=== PATIENT | male | born 1940 | race African-American/Black ===

== ENCOUNTER 2020-05-14 09:05 | Emergency (ER) | payer MEDICARE, MEDICAID ==
[~2020-05-14] VITALS: Ht 185.4 cm; Wt 75.0 kg
[~2020-05-14 09:05] MED LIST: ASPI-1497 PO; BACL-141 PO; ESCI10TA PO; SIMV10TA97 PO
[2020-05-14] MEDS ORDERED: ACETAMINOPHEN 500MG TABLET PO ONE (11:00)
[2020-05-14 11:56] VITALS: BP 137/93
== END 2020-05-14 12:40 | disposition home or self-care (01) ==
LOC: ER 10:13
DX: S22.42XA Multiple fractures of ribs, left side, initial encounter for closed fracture (principal); W18.39XA Other fall on same level, initial encounter; Y93.89 Activity, other specified; Y92.89 Other specified places as the place of occurrence of the external cause; Y99.8 Other external cause status; I10 Essential (primary) hypertension; Z86.73 Personal history of transient ischemic attack (TIA), and cerebral infarction without residual deficits; Z79.899 Other long term (current) drug therapy
CPT/HCPCS: 71101; 73030; 93005; 99284

== ENCOUNTER 2021-09-06 02:34 | Inpatient (IN) | payer MEDICARE, MEDICAID ==
[~2021-09-06] VITALS: Ht 177.8 cm; Wt 81.6 kg
[2021-09-06 03:47] LABS: BASOPHILS % 0.6 % (0.0-2.0); EOSINOPHILS % 1.8 % (0.0-5.0); HEMATOCRIT. 39.1 % (42.0-52.0); HEMOGLOBIN. 13.1 g/dL (14.0-18.0); LYMPHOCYTES % 13.2 % (20.0-50.0); MEAN CORPUSCULAR HEMOGLOBIN 31.7 pg (28.0-32.0); MEAN CORPUSCULAR VOLUME 94.8 fL (80.0-94.0); MEAN PLATELET VOLUME 9.7 fl (7.4-10.4); MONOCYTES % 11.6 % (2.0-8.0); NEUTROPHILS % 72.8 % (40.0-76.0); PLATELET 158 x1000/uL (130-400); RED BLOOD CELL COUNT 4.12 mill/uL (4.7-6.1); RED CELL DISTRIBUTION WIDTH 14.3 % (11.6-14.6)
[2021-09-06 03:56] LABS: CHLORIDE 109 mEq/L (98-107)
[2021-09-06 06:28] LABS: CLARITY URINE CLEAR (CLEAR); COLOR URINE YELLOW (YELLOW); KETONES URINE TRACE (NEGATIVE); LEUKOCYTE ESTERASE URINE NEGATIVE (NEGATIVE); NITRITE URINE NEGATIVE (NEGATIVE); OCCULT BLOOD URINE NEGATIVE (NEGATIVE); PH URINE 7.5 (4.5-8.0); PROTEIN URINE NEGATIVE (NEGATIVE); SPECIFIC GRAVITY URINE 1.014 (1.005-1.030)
[2021-09-06] MEDS ORDERED: HYDROCODONE/ACETAMINOPHEN 5/325MG TABLET PO PRN (08:45)
[2021-09-06] MEDS ORDERED: MAGNESIUM/ALUMINUM HYDROXIDE/SIMETHICONE 30ML UDC PO PRN (08:45)
[2021-09-06] MEDS ORDERED: CLONIDINE 0.1MG TABLET PO PRN (08:45)
[2021-09-06] MEDS ORDERED: DOCUSATE SODIUM 100MG CAPSULE PO PRN (08:45)
[2021-09-06] MEDS ORDERED: NALOXONE HCL 0.4MG/ML VIAL IV PRN (09:15)
[2021-09-06] MEDS: ENOXAPARIN 40MG/0.4ML SYR SUBCUT SCH (10:33)
[2021-09-06 14:12] LABS: *AMPHETAMINES SCREEN URINE NEGATIVE (NEGATIVE); *BARBITURATES SCREEN URINE NEGATIVE (NEGATIVE); *BENZODIAZEPINES SCREEN URINE NEGATIVE (NEGATIVE); *COCAINE SCREEN URINE NEGATIVE (NEGATIVE); CANNABINOID URINE SCREEN NEGATIVE (NEGATIVE); METHADONE URINE SCREEN NEGATIVE (NEGATIVE); OPIATES URINE SCREEN PRESUMTIVE POSITIVE (NEGATIVE); PHENCYCLIDINE URINE SCREEN NEGATIVE (NEGATIVE)
[2021-09-07 06:03] LABS: BASOPHILS % 0.6 % (0.0-2.0); EOSINOPHILS % 2.3 % (0.0-5.0); HEMATOCRIT. 37.9 % (42.0-52.0); HEMOGLOBIN. 12.7 g/dL (14.0-18.0); LYMPHOCYTES % 15.6 % (20.0-50.0); MEAN CORPUSCULAR HEMOGLOBIN 31.6 pg (28.0-32.0); MEAN CORPUSCULAR VOLUME 94.5 fL (80.0-94.0); MEAN PLATELET VOLUME 10.2 fl (7.4-10.4); MONOCYTES % 13.5 % (2.0-8.0); PLATELET 142 x1000/uL (130-400); RED BLOOD CELL COUNT 4.01 mill/uL (4.7-6.1); RED CELL DISTRIBUTION WIDTH 14.3 % (11.6-14.6)
[2021-09-07 06:23] LABS: CHLORIDE 105 mEq/L (98-107)
[2021-09-07 06:36] LABS: HDL CHOLESTEROL 74 mg/dL (40-59); LDL CHOLESTEROL 48 mg/dL (5-100); PHOSPHORUS 3.1 mg/dL (2.5-4.9); T4 FREE 0.84 ng/dL (0.76-1.46)
[2021-09-07] MEDS: OMEPRAZOLE 20MG CAPSULE EXTENDED RELEASE PO SCH (06:42)
[2021-09-07] MEDS: ENOXAPARIN 40MG/0.4ML SYR SUBCUT SCH (10:06)
[2021-09-07] MEDS ORDERED: BACITRACIN 15GM TUBE TOP ONE (11:24)
[2021-09-07] MEDS ORDERED: POLYMYXIN B SULFATE 500000 UNITS/VIAL ONE ×2 (11:24→12:01)
[2021-09-07] MEDS ORDERED: VANCOMYCIN HCL 1 GM/VIAL ONE (11:24)
[2021-09-07] MEDS ORDERED: LIDOCAINE HCL/EPINEPHRINE 1%-EPI 1:100,000 20 ML VIAL ONE (11:25)
[2021-09-07] MEDS ORDERED: SKIN ADHESIVE 0.7 GM EA TOP ONE (11:25)
[2021-09-07] MEDS ORDERED: GLYCOPYRROLATE 0.2 MG/ML 2ML VIAL ONE (12:43)
[2021-09-07] MEDS ORDERED: ETOMIDATE 2MG/ML 10ML VIAL IV ONE (12:43)
[2021-09-07] MEDS ORDERED: DEXAMETHASONE 4MG/ML 1ML VIAL ONE (12:43)
[2021-09-07] MEDS ORDERED: MIDAZOLAM HCL 2 MG/2 ML VIAL ONE (12:44)
[2021-09-07] MEDS ORDERED: FENTANYL CITRATE/PF 50MCG/ML 2ML VIAL ONE (12:44)
[2021-09-07] MEDS ORDERED: PROPOFOL 200MG/20ML VIAL IV ONE (13:31)
[2021-09-07] MEDS ORDERED: DIPHENHYDRAMINE 50MG/ML VIAL IV PRN (14:00)
[2021-09-07] MEDS ORDERED: BUTORPHANOL TARTRATE 2 MG/ML VIAL IV PRN (14:00)
[2021-09-07] MEDS ORDERED: ONDANSETRON HCL 4MG/2ML INJ IV PRN (14:00)
[2021-09-07] MEDS ORDERED: KETOROLAC 30MG/ML VIAL IV PRN (14:00)
[2021-09-07] MEDS ORDERED: HYDROMORPHONE HCL/PF 2MG/ML CPJ IV PRN (14:00)
[2021-09-07 16:00] VITALS: BP 113/75
[2021-09-07 16:25] VITALS: BP 113/75
[2021-09-07] MEDS ORDERED: BACL-141 PO (17:11)
[2021-09-07] MEDS ORDERED: CYCL30DR EACHEYE (17:11)
[2021-09-07] MEDS ORDERED: OFLO5DRO3 RIGHTEYE (17:11)
[2021-09-07] MEDS ORDERED: CHOL400D7 PO (17:11)
[2021-09-07] MEDS ORDERED: sodium chloride BOTHEYE (17:11)
[2021-09-07] MEDS ORDERED: SIMV-43 PO (17:11)
[2021-09-07] MEDS ORDERED: DILT-27 PO (17:11)
[2021-09-07 20:00] VITALS: BP_SYST 100; BP_SYST 139; BP_DIAS 66; BP_DIAS 76
[2021-09-07] MEDS: CEFAZOLIN 1000MG PREMIX 50 ML IV SCH (21:34)
[2021-09-07] MEDS ORDERED: CEFAZOLIN SODIUM 1000MG/VIAL IV SCH (22:00)
[2021-09-08] VITALS (7 sets, daily range): BP systolic 92–102; BP diastolic 52–66
[2021-09-08] MEDS: CEFAZOLIN 1000MG PREMIX 50 ML IV SCH ×3 (05:04→23:58)
[2021-09-08] MEDS: OMEPRAZOLE 20MG CAPSULE EXTENDED RELEASE PO SCH (05:21)
[2021-09-08] MEDS: ACETAMINOPHEN 325MG TABLET PO PRN ×2 (05:21→20:25)
[2021-09-08] MEDS: ENOXAPARIN 40MG/0.4ML SYR SUBCUT SCH (08:01)
[2021-09-08 16:30] LABS: HEMATOCRIT. 36.8 % (42.0-52.0); HEMOGLOBIN. 12.1 g/dL (14.0-18.0); MEAN CORPUSCULAR HEMOGLOBIN 31.6 pg (28.0-32.0); MEAN PLATELET VOLUME 11.4 fl (7.4-10.4); PLATELET 157 x1000/uL (130-400); RED BLOOD CELL COUNT 3.83 mill/uL (4.7-6.1); RED CELL DISTRIBUTION WIDTH 14.4 % (11.6-14.6)
[2021-09-08 16:39] LABS: CHLORIDE 105 mEq/L (98-107)
[2021-09-08] MEDS ORDERED: MIDODRINE HCL 5MG TABLET PO NR (19:45)
[2021-09-08] MEDS ORDERED: SODIUM CHLORIDE 0.9% 1,000 ML IV SCH (19:47)
[2021-09-08] MEDS ORDERED: SODIUM CHLORIDE 0.9% 1000ML BAG (SEPSIS BOLUS) IV ONE (20:15)
[2021-09-08] MEDS ORDERED: SODIUM CHLORIDE 0.9% 500 ML IV ONE ×2 (20:30→21:30)
[2021-09-08] MEDS: ATORVASTATIN CALCIUM 20MG TABLET PO SCH (20:33)
[2021-09-08 23:24] LABS: CLARITY URINE TURBID (CLEAR); COLOR URINE ORANGE (YELLOW); KETONES URINE 1+ (NEGATIVE); LEUKOCYTE ESTERASE URINE NEGATIVE (NEGATIVE); NITRITE URINE NEGATIVE (NEGATIVE); OCCULT BLOOD URINE NEGATIVE (NEGATIVE); PROTEIN URINE TRACE (NEGATIVE); SPECIFIC GRAVITY URINE 1.034 (1.005-1.030)
[2021-09-08 23:47] LABS: PLATELET ESTIMATE NORMAL
[2021-09-09] VITALS: BP 110/65
[2021-09-09] MEDS: VANCOMYCIN 1GM PMX (XELLIA) 200 ML IV SCH ×2 (02:17→13:39)
[2021-09-09 04:00] VITALS: BP 108/59
[2021-09-09] MEDS: CEFAZOLIN 1000MG PREMIX 50 ML IV SCH ×2 (05:24→14:46)
[2021-09-09] MEDS: ACETAMINOPHEN 325MG TABLET PO PRN ×2 (05:30→21:38)
[2021-09-09] MEDS: PIPERACILLIN/TAZOBACTAM 3.375 G in DEXTROSE 5% WATER 50 ML IV SCH ×2 (05:58→14:47)
[2021-09-09 07:43] LABS: CHLORIDE 108 mEq/L (98-107)
[2021-09-09 08:00] VITALS: BP 94/49
[2021-09-09] MEDS: ENOXAPARIN 40MG/0.4ML SYR SUBCUT SCH (08:48)
[2021-09-09] MEDS: FAMOTIDINE 20MG TABLET PO SCH ×2 (08:49→20:44)
[2021-09-09] MEDS: MIDODRINE HCL 5MG TABLET PO SCH ×3 (08:49→16:36)
[2021-09-09 09:06] LABS: BASOPHILS % 0.7 % (0.0-2.0); EOSINOPHILS % 4.5 % (0.0-5.0); HEMATOCRIT. 34.2 % (42.0-52.0); HEMOGLOBIN. 11.4 g/dL (14.0-18.0); LYMPHOCYTES % 9.3 % (20.0-50.0); MEAN CORPUSCULAR HEMOGLOBIN 31.7 pg (28.0-32.0); MEAN PLATELET VOLUME 10.2 fl (7.4-10.4); MONOCYTES % 13.5 % (2.0-8.0); PLATELET 153 x1000/uL (130-400); RED CELL DISTRIBUTION WIDTH 14.7 % (11.6-14.6)
[2021-09-09 12:00] VITALS: BP 100/52
[2021-09-09 16:00] VITALS: BP 143/59
[2021-09-09 18:04] VITALS: BP 143/59
[2021-09-09] MEDS ORDERED: *PATIENT'S OWN MEDICATION STORAGE XX SCH (18:30)
[2021-09-09] MEDS: ATORVASTATIN CALCIUM 20MG TABLET PO SCH (20:44)
== END 2021-09-09 22:10 | DRG 481 ==
LOC: ER 02:34 → MICUSO 08:00 → 8WST 09-07 16:29
PROVIDERS: ADMIT Specialist; ATTEND Specialist
PROC: 0QSC04Z Reposition Left Lower Femur with Internal Fixation Device, Open Approach (ICD-10-PCS; principal; 2021-09-07)
DX: S72.492A Other fracture of lower end of left femur, initial encounter for closed fracture (principal); I42.9 Cardiomyopathy, unspecified; E44.0 Moderate protein-calorie malnutrition; I48.0 Paroxysmal atrial fibrillation; E78.5 Hyperlipidemia, unspecified; I11.9 Hypertensive heart disease without heart failure; Z60.2 Problems related to living alone; Z20.822 Contact with and (suspected) exposure to COVID-19; Z68.25 Body mass index [BMI] 25.0-25.9, adult; Z79.899 Other long term (current) drug therapy; Z79.82 Long term (current) use of aspirin; Z95.0 Presence of cardiac pacemaker; Z86.73 Personal history of transient ischemic attack (TIA), and cerebral infarction without residual deficits; W01.0XXA Fall on same level from slipping, tripping and stumbling without subsequent striking against object, initial encounter; Y93.89 Activity, other specified; Y92.090 Kitchen in other non-institutional residence as the place of occurrence of the external cause; Y99.8 Other external cause status
CPT/HCPCS: 36415; 71045; 73552; 73562; 73590; 73700; 76000; 80048; 80053; 80061; 80076; 80305; 81003; 83735; 83880; 84100; 84439; 84443; 84484; 85025; 87426; 93005; 93306; 93970; 97162; 97530; 99285; C1713; G0378; J0690; J1100; J1650; J2250; J2543; J2704; J3010; J3370; J3490; J7060

== ENCOUNTER 2022-01-26 14:46 | Inpatient (IN) | payer MEDICARE, MEDICAID ==
[~2022-01-26] VITALS: Ht 182.9 cm; Wt 72.6 kg
[~2022-01-26 14:46] MED LIST changes: -BACL-141 PO; +CHOL400D7 PO; +CLOT15CR5 TOP; +CYCL30DR EACHEYE; +FAMO20TA8 PO; +FERR-63 PO; +METH-773 PO; +MIDO5TAB4 PO; +OFLO5DRO3 RIGHTEYE; +SIMV-43 PO; -SIMV10TA97 PO; +sodium chloride BOTHEYE
[2022-01-26 18:06] LABS: BASOPHILS % 0.3 % (0.0-2.0); EOSINOPHILS % 0.7 % (0.0-5.0); HEMATOCRIT. 45.3 % (42.0-52.0); HEMOGLOBIN. 14.9 g/dL (14.0-18.0); LYMPHOCYTES % 13.6 % (20.0-50.0); MEAN CORPUSCULAR HEMOGLOBIN 33.7 pg (28.0-32.0); MEAN CORPUSCULAR VOLUME 102.2 fL (80.0-94.0); MONOCYTES % 13.1 % (2.0-8.0); NEUTROPHILS % 72.3 % (40.0-76.0); RED BLOOD CELL COUNT 4.43 mill/uL (4.7-6.1); RED CELL DISTRIBUTION WIDTH 15.6 % (11.6-14.6)
[2022-01-27] VITALS (7 sets, daily range): BP systolic 105–141; BP diastolic 61–79
[2022-01-27] MEDS ORDERED: ONDANSETRON HCL 4MG/2ML INJ IV PRN (09:00)
[2022-01-27] MEDS ORDERED: NALOXONE HCL 0.4MG/ML VIAL IV PRN (17:30)
[2022-01-28] VITALS: BP 118/73
[2022-01-28 04:00] VITALS: BP 112/57
[2022-01-28 08:00] VITALS: BP 155/80
[2022-01-28 12:00] VITALS: BP 117/71
[2022-01-28 16:00] VITALS: BP 120/59
[2022-01-28 20:00] VITALS: BP 103/59
[2022-01-29] VITALS: BP 116/59
[2022-01-29 04:00] VITALS: BP 113/63
[2022-01-29] MEDS: HYDROCODONE/ACETAMINOPHEN 5/325MG TABLET PO PRN ×2 (10:38→15:51)
[2022-01-29 18:28] LABS: INR 0.9; PARTIAL THROMBOPLASTIN TIME 31.8 sec (23.4-31.0); PROTHROMBIN TIME 10.1 sec (9.6-11.0)
[2022-01-29 18:31] LABS: HEMATOCRIT. 40.6 % (42.0-52.0); HEMOGLOBIN. 13.5 g/dL (14.0-18.0); MEAN CORPUSCULAR HEMOGLOBIN 33.1 pg (28.0-32.0); MEAN CORPUSCULAR VOLUME 99.8 fL (80.0-94.0); RED BLOOD CELL COUNT 4.07 mill/uL (4.7-6.1); RED CELL DISTRIBUTION WIDTH 14.7 % (11.6-14.6)
[2022-01-29 18:59] LABS: CHLORIDE 106 mEq/L (98-107)
[2022-01-29 20:00] VITALS: BP 113/50
[2022-01-29 21:42] LABS: PLATELET ESTIMATE NORMAL
[2022-01-29 21:43] LABS: PLATELET 159 x1000/uL (130-400)
[2022-01-30] VITALS: BP 114/54
[2022-01-30 04:00] VITALS: BP 110/50
[2022-01-30 08:00] VITALS: BP 123/67
[2022-01-30] MEDS ORDERED: SODIUM BICARBONATE 4% (2.4MEQ) 5ML VIAL IV ONE (10:19)
[2022-01-30] MEDS ORDERED: LIDOCAINE HCL 1% 10 MG/ML 10ML VIAL ONE (10:19)
[2022-01-30 12:00] VITALS: BP 127/58
[2022-01-30 13:14] VITALS: BP 127/58
[2022-01-30 16:00] VITALS: BP 130/85
== END 2022-01-30 17:40 | disposition home health service (06) | DRG 563 ==
LOC: ER 14:46 → MICUSO 20:04 → 6EST 01-27 01:19
PROVIDERS: ADMIT Family Medicine Adult Medicine; ATTEND Family Medicine Adult Medicine
PROC: 0S9D3ZZ Drainage of Left Knee Joint, Percutaneous Approach (ICD-10-PCS; principal; 2022-01-30)
DX: S82.002A Unspecified fracture of left patella, initial encounter for closed fracture (principal); I69.354 Hemiplegia and hemiparesis following cerebral infarction affecting left non-dominant side; M25.462 Effusion, left knee; Z20.822 Contact with and (suspected) exposure to COVID-19; I10 Essential (primary) hypertension; R26.9 Unspecified abnormalities of gait and mobility; E78.5 Hyperlipidemia, unspecified; Z87.891 Personal history of nicotine dependence; Z91.81 History of falling; Z79.82 Long term (current) use of aspirin; Z87.81 Personal history of (healed) traumatic fracture; Z95.0 Presence of cardiac pacemaker; Z86.718 Personal history of other venous thrombosis and embolism; Z96.642 Presence of left artificial hip joint; Z82.3 Family history of stroke; M25.461 Effusion, right knee; W01.0XXA Fall on same level from slipping, tripping and stumbling without subsequent striking against object, initial encounter; Y93.89 Activity, other specified; Y92.89 Other specified places as the place of occurrence of the external cause; Y99.8 Other external cause status
CPT/HCPCS: 20611; 36415; 72170; 73562; 80048; 85025; 87426; 97162; 97166; 97530; 99285; J3490